=== PATIENT | male | born 1945 | race Asian ===

== ENCOUNTER → 2019-01-24 | Outpatient (CLI) | payer BC ==
[2019-01-24 11:19] LABS: microscopic required? NO
[2019-01-24 11:28] LABS: PLATELET COUNT 170 x10^3mcL (130-400); RED CELL DISTRIBUTION WIDTH 12.6 % (11.5-14.5)
[2019-01-24 11:31] LABS: urine erythrocyte NEGATIVE (NEGATIVE)
[2019-01-24 11:48] LABS: ALKALINE PHOSPHATASE 51 U/L (46-116); ALT/SGPT 52 U/L (16-63); AST/SGOT 60 U/L (15-37); CALCIUM 9.2 mg/dL (8.5-10.1); CARBON DIOXIDE 33.3 mmol/L (21-32); CHLORIDE SERUM 108 mmol/L (98-107); CHOLESTEROL 159 mg/dL (<200); CHOLESTEROL/HDL RATIO 3.5; CREATININE SERUM 1.2 mg/dL (0.7-1.3); GLUCOSE SERUM 107 mg/dL (74-106); HDL CHOLESTEROL 46 mg/dL (40-60); POTASSIUM SERUM 4.2 mmol/L (3.5-5.1); SODIUM SERUM 146 mmol/L (136-145); TOTAL PROTEIN, SERUM 7.2 g/dL (6.4-8.2); TRIGLYCERIDES 142 mg/dL (<150); URIC ACID 5.8 mg/dL (3.5-7.2)
[2019-01-24 11:53] LABS: BAND NEUTROPHIL 1 % (0-10); BASOPHIL 0 % (0-2); MONOCYTE 7 % (0-7); SEGMENTED NEUTROPHILS 38 % (37-75)
[2019-01-24 11:54] LABS: PLATELET MORPHOLOGY PLATELETS NORMAL
[2019-01-25 08:09] LABS: TESTOSTERONE, SERUM 490 ng/dL (264-916)
== END | disposition home or self-care (01) ==
LOC: LB 10:10
PROVIDERS: Internal Medicine
DX: D64.9 Anemia, unspecified (principal); E87.6 Hypokalemia; E11.9 Type 2 diabetes mellitus without complications; M10.9 Gout, unspecified; N39.0 Urinary tract infection, site not specified; R19.5 Other fecal abnormalities; R97.20 Elevated prostate specific antigen [PSA]; E29.1 Testicular hypofunction; E78.5 Hyperlipidemia, unspecified; R82.5 Elevated urine levels of drugs, medicaments and biological substances
CPT/HCPCS: 84153; 84403